=== PATIENT | female | born 1940 | race Caucasian/White ===

== ENCOUNTER 2017-04-25 14:25 | Outpatient (CLI) | payer MEDICARE, OTHER ==
--- NOTE | 2017-04-25 16:24 | MRI ---
PRE AND POSTCONTRAST ENHANCED MRI IMAGES BRAIN: HISTORY: A 77-year-old with a history of encephalitis 2 years ago, headaches. FINDINGS: Pre- and postcontrast-enhanced MRI images of the brain demonstrate some diffuse cortical atrophy and deep white matter ischemic changes. No evidence of intracranial masses, hemorrhages, strokes, or c ontusions seen. Ventricles are of normal size. No abnormal areas of intracranial enhancement seen. No evidence of areas of diffusion restriction seen. A normal flow void is seen in the major intra cranial vessels. IMPRESSION: Deep white matter ischemic changes. Otherwise, unremarkable pre- and postcontrast-enhanced MRI imag es of the brain. POS: [facility]
== END 2017-04-25 14:26 | disposition home or self-care (01) ==
LOC: SCSMRI 14:25
PROVIDERS: ATTEND Family Medicine
DX: R51 Headache (principal); G93.9 Disorder of brain, unspecified; Z86.61 Personal history of infections of the central nervous system; Z86.69 Personal history of other diseases of the nervous system and sense organs
CPT/HCPCS: 70553

== ENCOUNTER 2017-09-26 13:24 | Outpatient (CLI) | payer MEDICARE, OTHER ==
--- NOTE | 2017-09-26 15:59 | MRI ---
MRI OF LEFT SHOULDER 09/26/17 PROVIDED CLINICAL HISTORY: Left shoulder pain. FINDINGS: The components of the rotator cuff appear intact. The long head biceps tendon appears intact and norm ally located. The glenoid labrum and glenohumeral articular cartilage are suboptimally evaluated without joint dist ention. There is an ill-defined appearance to the inferior glenohumeral ligament particularly in the region of the humeral attachment. The amount of fluid within the glenohumeral joint appears physiologic. The amount of fluid within the subacromial, subdeltoid bursa appears physiologic. Acromioclavicular joint osteoarthrosis is mild and without significant mass effect upon the subjacen t supraspinatus. No focal concerning regional marrow or muscular signal abnormality is evident. IMPRESSION: 1. Ill-defined appearance to the inferior glenohumeral ligament, particularly in region of the h umeral attachments. Findings could reflect remote injury. Adhesive capsulitis can also present in thi s manner. 2. Acromioclavicular joint osteoarthrosis, mild. POS: [facility]
== END 2017-09-26 13:25 | disposition home or self-care (01) ==
LOC: SCSMRI 13:24
PROVIDERS: ATTEND Orthopaedic Surgery
DX: M25.512 Pain in left shoulder (principal); M19.012 Primary osteoarthritis, left shoulder

== ENCOUNTER 2017-10-16 13:57 | Outpatient (CLI) | payer MEDICARE, OTHER ==
[2017-10-16 14:58] LABS: Hemoglobin 13.3 g/dL (12.0-16.0); Mean Corpuscular HGB CONC 33.6 g/dL (32.0-36.0); Mean Corpuscular Hemoglobin 33.5 pg (27.0-31.0); Mean Corpuscular Volume 99.6 fl (81.0-99.0); Mean Platelet Volume 5.8 fL (7.4-10.4); Platelet Count 306 thou/uL (130-400); RBC Distribution Width 11.6 % (11.5-14.5); Red Blood Cell (RBC) Count 3.96 mill/uL (4.20-5.40); White Blood Cell (WBC) Count 5.7 thou/uL (4.8-10.8)
[2017-10-16 15:17] LABS: Anion Gap 12 mmol/L (10-20); BUN (Urea Nitrogen) 10 mg/dL (9.8-20.1); Calc. Creatinine Clearance 0 mL/min (70-130); Calcium 9.1 mg/dL (7.8-10.44); Carbon Dioxide 23 mmol/L (23-31); Chloride 107 mmol/L (98-107); Estimated GFR-MDRD Greater than 90; Glucose 88 mg/dL (83-110); Potassium 3.7 mmol/L (3.5-5.1); Sodium 138 mmol/L (136-145)
== END 2017-10-16 13:58 | disposition home or self-care (01) ==
LOC: LABBT 13:57
PROVIDERS: ATTEND Orthopaedic Surgery
DX: Z01.818 Encounter for other preprocedural examination (principal)
CPT/HCPCS: 80048; 85027; 93005; 93010

== ENCOUNTER 2017-10-17 06:39 | Day surgery (SDC) | payer MEDICARE, OTHER ==
[2017-10-16 14:07] VITALS: BMI 24.0
[2017-10-17] MEDS ORDERED: CEFAZOLIN/Water 2 GM/20 ML SYRINGE ONE (07:56)
[2017-10-17] MEDS ORDERED: Midazolam HCl 2 mg/2 ml Vial ONE (08:27)
[2017-10-17] MEDS ORDERED: Fentanyl 100 MCG/2 ML VIAL ONE ×2 (08:27→10:19)
[2017-10-17] MEDS ORDERED: Promethazine HCl 25 MG/ML VIAL IM PRN (09:03)
[2017-10-17] MEDS ORDERED: Ketorolac Tromethamine 30 MG/ML VIAL IVP PRN (09:03)
[2017-10-17] MEDS ORDERED: Zolpidem Tartrate 5 MG TAB PO PRN (09:03)
[2017-10-17] MEDS ORDERED: Ropivacaine 0.2% 550 ML 550 ML NERVE BLCK SCH (09:03)
[2017-10-17] MEDS ORDERED: Ondansetron HCl/PF 4 MG/2 ML Vial IVP PRN (09:03)
[2017-10-17] MEDS ORDERED: traMADol HCl 50 MG TAB PO PRN ×2 (09:03)
[2017-10-17] MEDS ORDERED: Fentanyl 100 MCG/2 ML VIAL IV PRN (09:04)
[2017-10-17] MEDS ORDERED: HYDROcodone/Acetaminophen 7.5/325 mg Tablet PO PRN ×2 (09:06)
[2017-10-17] MEDS ORDERED: Levofloxacin 500 mg/D5W 100 ml Premix Bag ONE (09:36)
[2017-10-17] MEDS ORDERED: Clindamycin/D5W 900 mg/50 ml Premix Bag ONE (09:36)
[2017-10-17] MEDS ORDERED: Bupivacaine/Epinephrine 0.25% 30 ML VIAL ONE (09:41)
[2017-10-17] MEDS ORDERED: SUGAMMADEX SODIUM 200 MG/2 ML VIAL ONE (11:13)
--- NOTE | 2017-10-17 12:39 | OP ---
DATE OF PROCEDURE: 10/17/2017 PREOPERATIVE DIAGNOSES: Left shoulder impingement with partial cuff tear. POSTOPERATIVE DIAGNOSES: 1. Left shoulder impingement. 2. Less than 10% partial cuff tear. PROCEDURE: 1. Extensive debridement STAFF: Jey Membreno M.D. PUBLIC RELATIONS: None. ANESTHESIA: Tammie. The patient received a general endotracheal intubation with interscalene block. ESTIMATED BLOOD LOSS: 30 mL. TOURNIQUET TIME: None. IMPLANTS: None. ANTIBIOTICS: Clindamycin 900 mg and Levaquin 500 mg. COMPLICATIONS: None. HISTORY OF PRESENT ILLNESS: Ms. Tan is a pleasant 77-year-old female who has had a history of multiple falls on her left shoulder. The patient has impacted activities. Pain has been present for over a year. The patient has undergone home therapy, injections, anti-inflammatories had MRI for evaluation. The patient had relief from injection, but has continued to have pain. MRI showed some interstitial tear. No obvious full thickness cuff tear, degenerative labral changes, AC joint arthritis, type 2 acromion. I discussed with the patient the risks and benefits of arthroscopic evaluation of her cuff for repair with possible decompression, possible biceps tenotomy. She understood the risks and benefits to include pain, scar, bleeding, infection, damage to vital structures, decreased range of motion or strength, loss of life or limb. She understood these risks and benefits and elected to proceed. Time out was performed. PROCEDURE IN DETAIL: Timeout was performed designating the patient's left upper extremity as the operative site based on site, consents, markings. I placed a posterior working portal and anterior working portal, visualized the tear articularly, the biceps had a nice root. There was maybe small fraying of the capsule insertion within the shoulder, which I just slightly debrided. I saw no labral tearing as I probed. The biceps looked good. Subscapularis looked good. I saw no full thickness cartilage defects intraarticularly. After completion of this, I moved subacromially. The patient had bursa which I debrided off. I debrided off all the tissue off the bone and took down the CA ligament, burred, I shaved and smoothed the acromion. There was a small acromion, I did not desire to take a big bur width, I just took my shaver and shaved it down. I shaved off all the bursa and expose the cuff. I did not see a full thickness supraspinatus tear or infraspinatus tear. There was some fibrillations and kind of seaweed type tearing which would be less than 10%. I saw no full thickness component. After completely exposing and taking pictures of the cuff I then washed and closed with 3-0 nylon. The patient will be placed in a sling. Begin range of motion as tolerated. I will see her back in clinic in about 2 weeks. SIXTO
[2017-10-17] MEDS ORDERED: Promethazine HCl 25 MG/ML VIAL ONE (13:08)
[2017-10-17] MEDS ORDERED: Ropivacaine 0.5% HCl/PF (150 MG/30 ML VIAL) ONE (13:41)
[2017-10-17] MEDS ORDERED: PROPOFOL 200 MG/20 ML VIAL ONE (15:34)
[2017-10-17] MEDS ORDERED: Ondansetron HCl/PF 4 MG/2 ML Vial ONE (15:34)
== END 2017-10-17 14:28 | disposition home or self-care (01) ==
LOC: SDC 06:39
PROVIDERS: ATTEND Orthopaedic Surgery
PROC: 0RBK4ZZ Excision of Left Shoulder Joint, Percutaneous Endoscopic Approach (ICD-10-PCS; principal; 2017-10-17)
DX: M75.42 Impingement syndrome of left shoulder (principal); M75.112 Incomplete rotator cuff tear or rupture of left shoulder, not specified as traumatic; I10 Essential (primary) hypertension; F41.9 Anxiety disorder, unspecified; F32.9 Major depressive disorder, single episode, unspecified; G44.89 Other headache syndrome; M54.31 Sciatica, right side; Z79.82 Long term (current) use of aspirin; Z79.899 Other long term (current) drug therapy; Z88.0 Allergy status to penicillin; Z88.5 Allergy status to narcotic agent; Z91.09 Other allergy status, other than to drugs and biological substances
CPT/HCPCS: 29822; A4306; 96374; J1956; J2250; J2405; J2550; J2704; J2795; J3010; J3490

== ENCOUNTER 2018-03-19 12:44 | Outpatient (CLI) | payer MEDICARE, OTHER | END 2018-03-19 12:45 | disposition home or self-care (01) | LOC: BICMRI 12:44 | PROVIDERS: ATTEND Orthopaedic Surgery | DX: M54.2 Cervicalgia (principal) | CPT/HCPCS: 72141 ==

== ENCOUNTER 2018-08-22 11:00 | Emergency (ER) | payer MEDICARE, OTHER ==
[2018-08-22] MEDS ORDERED: Metoclopramide HCl 10 MG/2 ML VIAL ONE (11:25)
[2018-08-22] MEDS ORDERED: diphenhydrAMINE 50 MG/ML VIAL ONE (11:25)
--- NOTE | 2018-08-22 12:01 | CT ---
CT OF THE BRAIN WITHOUT CONTRAST: Date: 08/22/18 COMPARISON: None. HISTORY: Headache. High blood pressure. TECHNIQUE: Multiple contiguous axial images were obtained in a CT of the brain without contrast. FINDINGS: There are scattered hypodensities in the subcortical and periventricular white matter, likely seconda ry to small vessel ischemic disease. No large confluent infarction is seen. There is no evidence of h ydrocephalus, intracranial hemorrhage, or extra-axial fluid collection. A radiopaque structure is seen anterior to the left globe which produces streak artifact. The visuali zed paranasal sinuses and mastoid air cells are well aerated. IMPRESSION: Small vessel ischemic disease without acute intracranial abnormality. POS: [facility]
[2018-08-22 12:02] LABS: #Basophils 0.1 thou/uL (0.0-0.2); #Eosinphils 0.1 thou/uL (0.0-0.7); #Lymphocytes 1.8 thou/uL (1.20-3.40); #Monocytes 0.6 thou/uL (0.11-0.59); #Neutrophils 5.2 thou/uL (1.40-6.50); %Basophils 1.3 % (0.0-1.0); %Eosinophils 1.2 % (0.0-10.0); %Monocytes 7.2 % (0.0-10.0); %Neutrophils 67.3 % (42.0-75.0); Hemoglobin 14.4 g/dL (12.0-16.0); Mean Corpuscular HGB CONC 32.4 g/dL (32.0-36.0); Mean Corpuscular Hemoglobin 31.8 pg (27.0-31.0); Mean Corpuscular Volume 98.1 fL (78.0-98.0); Mean Platelet Volume 6.1 fL (7.4-10.4); Platelet Count 319 thou/uL (130-400); RBC Distribution Width 12.9 % (11.5-14.5); Red Blood Cell (RBC) Count 4.53 mill/uL (4.20-5.40); White Blood Cell (WBC) Count 7.8 thou/uL (4.8-10.8)
[2018-08-22] MEDS ORDERED: methylPREDNISolone Sod Succ/PF 125 MG/2 ML VIAL ONE (12:13)
[2018-08-22 12:17] LABS: ALT (SGPT) 20 U/L (8-55); AST (SGOT) 19 U/L (5-34); Albumin 4.1 g/dL (3.4-4.8); Alkaline Phosphatase 82 U/L (40-150); Anion Gap 15 mmol/L (10-20); BUN (Urea Nitrogen) 13 mg/dL (9.8-20.1); Bilirubin, Total 0.3 mg/dL (0.2-1.2); Calc. Creatinine Clearance 0 mL/min (70-130); Calcium 9.9 mg/dL (7.8-10.44); Carbon Dioxide 25 mmol/L (23-31); Chloride 105 mmol/L (98-107); Estimated GFR-MDRD 85; Glucose 90 mg/dL (83-110); Potassium 3.9 mmol/L (3.5-5.1); Protein, Total 7.1 g/dL (6.0-8.3); Sodium 141 mmol/L (136-145)
[2018-08-22] MEDS ORDERED: Ketorolac Tromethamine 30 MG/ML VIAL ONE (12:27)
== END 2018-08-22 12:38 | disposition home or self-care (01) ==
LOC: SCSER 11:00
DX: I10 Essential (primary) hypertension (principal); F32.9 Major depressive disorder, single episode, unspecified; G43.909 Migraine, unspecified, not intractable, without status migrainosus; M19.90 Unspecified osteoarthritis, unspecified site; F41.9 Anxiety disorder, unspecified; Z79.82 Long term (current) use of aspirin; Z79.891 Long term (current) use of opiate analgesic; Z79.899 Other long term (current) drug therapy
CPT/HCPCS: 70450; 80053; 84484; 85025; 93005; 94760; 96374; 96375; J1200; J1885; J2765; J2930

== ENCOUNTER 2018-09-01 04:12 | Inpatient (IN) | payer MEDICARE, OTHER ==
[2018-09-01] MEDS ORDERED: Morphine 4 MG/ML VIAL ONE (04:31)
[2018-09-01] MEDS ORDERED: Ondansetron PF 4 MG/2 ML Vial ONE (04:31)
[2018-09-01 05:05] LABS: Eosinophils 3 % (0-10); Hemoglobin 15.7 g/dL (12.0-16.0); Lymphocytes 13 % (21-51); MDiff Complete? YES; Mean Corpuscular HGB CONC 33.9 g/dL (32.0-36.0); Mean Corpuscular Hemoglobin 32.7 pg (27.0-31.0); Mean Corpuscular Volume 96.6 fL (78.0-98.0); Mean Platelet Volume 5.8 fL (7.4-10.4); Monocytes 9 % (0-10); Neutrophil 72 % (42-75); Platelet Count 317 thou/uL (130-400); RBC Distribution Width 12.6 % (11.5-14.5); Reactive Lymphocytes 3 % (0-10); Red Blood Cell (RBC) Count 4.79 mill/uL (4.20-5.40); White Blood Cell (WBC) Count 12.7 thou/uL (4.8-10.8)
[2018-09-01 05:09] LABS: ALT (SGPT) 27 U/L (8-55); AST (SGOT) 37 U/L (5-34); Albumin 4.4 g/dL (3.4-4.8); Alkaline Phosphatase 74 U/L (40-150); Anion Gap 20 mmol/L (10-20); BUN (Urea Nitrogen) 16 mg/dL (9.8-20.1); Bilirubin, Total 0.4 mg/dL (0.2-1.2); Calc. Creatinine Clearance 0 mL/min (70-130); Calcium 11.3 mg/dL (7.8-10.44); Carbon Dioxide 25 mmol/L (23-31); Chloride 102 mmol/L (98-107); Estimated GFR-MDRD 73; Globulin 3.4 g/dL (2.4-3.5); Glucose 127 mg/dL (83-110); Lipase 21 U/L (8-78); Potassium 4.6 mmol/L (3.5-5.1); Protein, Total 7.8 g/dL (6.0-8.3); Sodium 142 mmol/L (136-145)
[2018-09-01] MEDS ORDERED: Morphine 4 MG/ML VIAL SLOW IVP PRN (07:00)
[2018-09-01] MEDS ORDERED: Ondansetron PF 4 MG/2 ML Vial IVP PRN (07:00)
[2018-09-01] MEDS ORDERED: Ondansetron ODT 4 MG TAB PO PRN (07:00)
[2018-09-01] MEDS ORDERED: Sodium Chloride 0.9% 1,000 ML IV SCH (07:00)
[2018-09-01] MEDS ORDERED: Labetalol HCl 100 MG/20 ML VIAL SLOW IVP PRN (07:48)
[2018-09-01] MEDS ORDERED: hydrALAZINE 20 MG/ML VIAL SLOW IVP PRN (07:48)
--- NOTE | 2018-09-01 07:58 | CT ---
ABDOMEN AND PELVIS CT NONCONTRAST: COMPARISON: 02/27/2017. INDICATION: Abdominal pain. FINDINGS: There are numerous dilated fluid and stool-filled loops of small bowel. The bowel is incompletely ev aluated without enteric contrast. A discrete point of transition is not identified, although bowel s omewhat tapers within the right lower quadrant near the site of anastomotic suture where there is sto ol-filled small bowel which is mildly distended. There is evidence of prior cholecystectomy. Solid abdominal organs, lymph nodes, and vascular are in completely assessed without the presence of IV contrast. There is scattered mild vascular calcificat ion. There is eventration of the ventral abdominal wall with adjacent surgical clips. Bilateral jose ast implants are seen with a component of chronic-appearing rupture demonstrate, more level with the medial aspect of the right breast. No acute osseous abnormality. IMPRESSION: Limited exam without IV or enteric contrast. There is evidence to indicate bowel obstruction with di ffuse distended fluid and stool-filled small bowel. There are sites of anastomotic suture and, there fore, the etiology could relate to adhesions, although this could not be confirmed on the basis of th is exam. There is no disseminated free air. POS: [facility]
[2018-09-01] MEDS ORDERED: Morphine 2 MG/ML SYRINGE SLOW IVP PRN (08:06)
[2018-09-01] MEDS: Morphine 4 MG/ML VIAL SLOW IVP PRN ×4 (09:31→21:31)
[2018-09-01] MEDS: Enoxaparin Sodium 40 MG/0.4 ML SYRINGE SC SCH (09:31)
[2018-09-01] MEDS: Famotidine/PF 20 mg/2ml Vial SLOW IVP SCH ×2 (09:31→21:42)
[2018-09-01] MEDS: D5 0.9% NS w/ 20 mEq KCl 1,000 ML IV SCH ×2 (09:32→17:40)
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
[2018-09-01] MEDS: Ondansetron PF 4 MG/2 ML Vial IVP PRN ×2 (12:23→19:48)
[2018-09-02] MEDS: D5 0.9% NS w/ 20 mEq KCl 1,000 ML IV SCH ×4 (01:49→17:16)
[2018-09-02] MEDS: Morphine 4 MG/ML VIAL SLOW IVP PRN (01:59)
[2018-09-02] MEDS: Ondansetron PF 4 MG/2 ML Vial IVP PRN (02:02)
[2018-09-02 03:04] LABS: #Basophils 0.1 thou/uL (0.0-0.2); #Eosinphils 0.1 thou/uL (0.0-0.7); #Monocytes 0.5 thou/uL (0.11-0.59); #Neutrophils 3.9 thou/uL (1.40-6.50); %Basophils 1.3 % (0.0-1.0); %Eosinophils 1.1 % (0.0-10.0); %Lymphocytes 18.4 % (21.0-51.0); %Monocytes 8.5 % (0.0-10.0); %Neutrophils 70.8 % (42.0-75.0); Hemoglobin 13.8 g/dL (12.0-16.0); Mean Corpuscular HGB CONC 32.6 g/dL (32.0-36.0); Mean Corpuscular Hemoglobin 32.9 pg (27.0-31.0); Mean Platelet Volume 6.3 fL (7.4-10.4); Platelet Count 262 thou/uL (130-400); White Blood Cell (WBC) Count 5.5 thou/uL (4.8-10.8)
[2018-09-02 03:24] LABS: Anion Gap 12 mmol/L (10-20); BUN (Urea Nitrogen) 6 mg/dL (9.8-20.1); Calc. Creatinine Clearance 0 mL/min (70-130); Calcium 8.9 mg/dL (7.8-10.44); Carbon Dioxide 26 mmol/L (23-31); Chloride 106 mmol/L (98-107); Estimated GFR-MDRD Greater than 90; Glucose 140 mg/dL (83-110); Potassium 4.2 mmol/L (3.5-5.1); Sodium 140 mmol/L (136-145)
[2018-09-02] MEDS ORDERED: Ketorolac Tromethamine 30 MG/ML VIAL IVP PRN (03:31)
[2018-09-02] MEDS ORDERED: Promethazine HCl 12.5 MG in Sodium Chloride 0.9% 50 ML IVPB PRN (03:32)
[2018-09-02] MEDS: Famotidine/PF 20 mg/2ml Vial SLOW IVP SCH ×2 (09:12→20:54)
[2018-09-02] MEDS: Enoxaparin Sodium 40 MG/0.4 ML SYRINGE SC SCH (09:13)
[2018-09-02] MEDS ORDERED: MD-Gastroview 120 ML BOT ONE (10:02)
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
[2018-09-02] MEDS: Ketorolac Tromethamine 30 MG/ML VIAL IVP PRN ×2 (14:13→20:52)
--- NOTE | 2018-09-02 15:20 | RAD ---
GASTROGRAFIN SMALL BOWEL STUDY: DATE: 09/02/2018. HISTORY: Small bowel obstruction based on recent CT exam. FINDINGS: [employer] AP ABDOMINAL RADIOGRAPH: Comparison is made with the study on 03/03/2017. Nasogastric tube is noted in place with tip overlyin g the expected location of the body of the body of the stomach. There is postsurgical of the abdomen with surgical clips overlying the right upper quadrant and radiopaque suture material overlying the right lower quadrant. The bowel gas pattern is overall nonspecific on this exam. Distended gas-fill ed loops of small bowel in colon on the prior study has improved. No other interval change. GASTROGRAFIN SMALL BOWEL STUDY: There is contrast seen throughout the small bowel on the 15-minute image without significantly dilate d loops of small bowel visualized. There is contrast also seen within the colon on the 15-minute vijay ge. A 30-minute delayed image is obtained, and contrast is seen in the rectum. Contrast has emptied out of the stomach on the 30-minute image. There is irregularity of the right iliac bone which is a stable finding compared to the prior study a nd was also seen on CT abdomen and pelvis in 2015 suggesting a benign finding and may be postsurgical in origin. IMPRESSION: Postsurgical changes of the abdomen, but there is no evidence of a small bowel obstruction. Contrast is visualized in the colon to the level of the splenic flexure on the 15-minute image with contrast seen in the rectum on the 30-minute image without findings to suggest a small bowel obstruction on th is exam. POS: [facility]
[2018-09-02] MEDS ORDERED: traMADol HCl 50 MG TAB PO PRN (16:46)
[2018-09-02] MEDS: traMADol HCl 50 MG TAB PO PRN (17:00)
--- NOTE | 2018-09-02 21:25 | PDOC.PN ---
- Subjective Encounter Start Date: 09/02/18 Encounter Start Time: 09:45 Patient seen and examined for SBO/Abd pain. NG tube placed last night. No N/V. No BM or passing gas. No other overnight events - Objective Resuscitation Status - Order Detail: 09/01/18 07:44 Resuscitation Status Routine Resuscitation Status: FULL: Full Resuscitation MAR Reviewed: Yes Vital Signs & Weight: Vital Signs (12 hours) Temp Pulse Resp BP Pulse Ox 09/02/18 16:05 98.2 F 89 16 141/74 H 95 09/02/18 11:42 98.2 F 83 20 178/77 H Weight Weight 2.797 oz I&O: 09/01/18 09/02/18 09/03/18 06:59 06:59 06:59 Intake Total 1477 Output Total 2034 75 Balance -2034 1402 Result Diagrams: 09/02/18 02:51 09/02/18 02:51 Phys Exam - Physical Examination Constitutional: NAD Respiratory: no wheezing, no rhonchi Cardiovascular: RRR, no rub Gastrointestinal: soft, positive bowel sounds mild gen tenderness/no rebound/guarding Musculoskeletal: no edema Dx/Plan - Plan DVT proph w/SCDs IMPRESSION: 1. Acute Abd pain due to SBO 2. HTN 3. Migraines 4. Multiple abd surgeries 5. Dehydration PLAN: Cont NG tube/IVF Consult Gen surg Cont NPO Pain control Review of Systems - Review of Systems Respiratory: negative: Cough, Dry, Shortness of Breath, Hemoptysis, SOB with Excertion, Pleuritic Pain, Sputum, Wheezing Cardiovascular: negative: chest pain, palpitations, orthopnea, paroxysmal nocturnal dyspnea, edema, light headedness, other - Medications/Allergies Allergies/Adverse Reactions: Allergies Allergy/AdvReac Type Severity Reaction Status Date / Time Penicillins Allergy Intermediate Hives Verified 09/01/18 06:53 codeine Allergy Mild Hives Verified 09/01/18 06:53 iodine Allergy Mild Verified 09/01/18 06:53 Medications: Current Medications Amlodipine Besylate (Norvasc) 5 mg PO DAILY [facility] Famotidine (Pepcid) 20 mg PO BID [facility] Hydralazine HCl (Apresoline) 10 mg SLOW IVP Q4H PRN PRN Reason: SBP > 180 and HR < 70 Potassium Chloride/Dextrose/Sod Cl (D5 0.9% Ns W/ 20 Meq Kcl) 1,000 mls @ 50 mls/hr IV .Q20H [facility] Last Admin: 09/02/18 17:02 Dose: Not Given Ketorolac Tromethamine (Toradol) 15 mg IVP Q6H PRN PRN Reason: Pain Stop: 09/07/18 12:54 Last Admin: 09/02/18 20:52 Dose: 15 mg Labetalol HCl (Normodyne) 20 mg SLOW IVP Q4H PRN PRN Reason: SBP > 180 and HR >/= 70 Nadolol (Corgard) 20 mg PO DAILY [facility] Ondansetron HCl (Zofran) 4 mg IVP Q6H PRN PRN Reason: Nausea/Vomiting Last Admin: 09/02/18 02:02 Dose: 4 mg Sodium Chloride (Flush - Normal Saline) 10 ml IVF Q12HR [facility] Last Admin: 09/02/18 20:54 Dose: 10 ml Sodium Chloride (Flush - Normal Saline) 10 ml IVF PRN PRN PRN Reason: Saline Flush Last Admin: 09/02/18 02:00 Dose: 10 ml Tramadol HCl (Ultram) 50 mg PO Q4H PRN PRN Reason: Moderate Pain (4-6) Tramadol HCl (Ultram) 100 mg PO Q6H PRN PRN Reason: Pain 7-10 Last Admin: 09/02/18 17:00 Dose: 100 mg
[2018-09-03] MEDS: traMADol HCl 50 MG TAB PO PRN ×2 (00:25→08:31)
[2018-09-03] MEDS: D5 0.9% NS w/ 20 mEq KCl 1,000 ML IV SCH (00:30)
[2018-09-03] MEDS: Ondansetron PF 4 MG/2 ML Vial IVP PRN (05:32)
[2018-09-03] MEDS: Ketorolac Tromethamine 30 MG/ML VIAL IVP PRN (05:33)
[2018-09-03] MEDS ORDERED: Amlodipine 5 MG TAB PO SCH (09:00)
[2018-09-03] MEDS ORDERED: NADOLOL 20 MG PO SCH (09:00)
[2018-09-03] MEDS ORDERED: Nadolol 40 MG TAB PO SCH (09:00)
[2018-09-03] MEDS ORDERED: Famotidine 20 MG TAB PO SCH (09:00)
--- NOTE | 2018-09-03 09:59 | PRG ---
DATE OF SERVICE: 09/03/2018 Britney is a 78-year-old woman, who was admitted with acute onset abdominal pain. I evaluated the patient in consultation to exclude small-bowel obstruction. The patient had unremarkable small-bowel follow-through yesterday. Since then, she has had multiple bowel movements. She is not tolerating general diet. She has remained hemodynamically stable and afebrile through this admission. Abdomen is soft, nontender, and nondistended. She has maximized benefit from this surgical service. There remains no acute surgical indication for this patient at this time. From General Surgery standpoint, the patient may be discharged home to follow up with her primary care physician as needed. Job ID: [id number]
[2018-09-03 11:43] VITALS: BP 140/86; TEMP 98.2
--- NOTE | 2018-09-03 19:35 | DIS ---
DATE OF ADMISSION: 09/01/2018 DATE OF DISCHARGE: 09/03/2018 DISCHARGE DISPOSITION: Home. FOLLOWUP: 1. Follow up with primary care physician, Dr. Hortensia Hunt in 1 week. 2. Follow up with General Surgery, Dr. Reyes Gonzalez in 2 to 3 weeks. The patient was seen and examined on the day of discharge. Denies any new complaints. No nausea, vomiting, or abdominal pain reported. INPATIENT SWEET PICKLE [employer]KER: General Surgery, Dr. Gonzalez. BRIEF HOSPITAL COURSE: The patient is a 78-year-old female with multiple GI surgeries in the past, presented to the hospital with abdominal discomfort. Workup was consistent with small-bowel obstruction on the CT scan. She was managed conservatively with NG tube, n.p.o. Status, and IV fluids. Next day, she underwent a Gastrografin small-bowel study, after which a small bowel obstruction resolved. She was monitored overnight and has done well. She has been cleared by General Surgery for discharge. LABORATORY DATA: Significant labs; WBC on admission 12.7, at discharge 5.5. FINAL DIAGNOSES: 1. Acute abdominal pain secondary to small bowel obstruction, resolved. 2. Hypertension. 3. Multiple abdominal surgeries in the past. 4. History of migraines. 5. Dehydration. 6. Penicillin, codeine, and iodine allergy. 7. Slightly abnormal LFTs. 8. Leukocytosis, unlikely to be infectious. Job ID: [id number]
== END 2018-09-03 11:45 | disposition home or self-care (01) | DRG 390 ==
LOC: SCSER 04:12 → 3SE 05:32
PROVIDERS: ADMIT Hospitalist; ATTEND Hospitalist
DX: K56.609 Unspecified intestinal obstruction, unspecified as to partial versus complete obstruction (principal); I10 Essential (primary) hypertension; G43.909 Migraine, unspecified, not intractable, without status migrainosus; E86.0 Dehydration
CPT/HCPCS: 36415; 74176; 74250; 80048; 80053; 83690; 85025; 96361; 96374; 96375; J1650; J1885; J2270; J2405; J2550; J7050; Q9963; S0028

== ENCOUNTER 2018-11-06 12:47 | Outpatient (CLI) | payer MEDICARE, OTHER ==
--- NOTE | 2018-11-06 13:28 | ULT ---
BILATERAL CAROTID DUPLEX ULTRASOUND: HISTORY: Syncope TECHNIQUE: Grayscale, color-flow and spectral Doppler ultrasound imaging of the extracranial carotid artery syst ems and vertebral arteries was performed bilaterally. FINDINGS: No large amount of echogenic plaque is seen involving the common carotid or internal carotid arteries . The peak systolic velocity in the right ICA measures 79 cm/s. The peak systolic velocity in the righ t CCA measures 95 cm/s. The peak systolic velocity in the left ICA measures 79 cm/s. The peak systolic velocity in the lef t CCA measures 80 cm/s. The right IC/CC ration is0.83. The left IC/CC ratio is 0.98. Vertebral flow: antegrade, bilaterally. . IMPRESSION: No hemodynamically significant stenosis of the internal carotid arteries.
== END 2018-11-06 12:48 | disposition home or self-care (01) ==
LOC: BICULT 12:47
PROVIDERS: ATTEND Internal Medicine Geriatric Medicine
DX: R55 Syncope and collapse (principal)
CPT/HCPCS: 93880

== ENCOUNTER 2020-06-16 12:24 | Outpatient (CLI) | payer MEDICARE, OTHER ==
[2020-06-16] MEDS ORDERED: Magnevist 469MG/ML 20 ML VIAL ONE (13:54)
--- NOTE | 2020-06-16 14:05 | MRI ---
MRI BRAIN WITH AND WITHOUT CONTRAST: 06/16/20 COMPARISON: None. HISTORY: Migraine headaches. TECHNIQUE: Multiplanar and multisequence MR imaging of the brain provided with and without contrast. FINDINGS: The diffusion weighted imaging demonstrates no evidence for acute infarction. The axial gradient echo imaging demonstrates no evidence for intracranial hemorrhage. The imaged paranasal sinuses and mastoid air cells appear grossly unremarkable. There is mild diffuse cerebral volume loss. There is extensive multifocal periventricular, deep, and subcortical white matter. T2 and FLAIR hyperintensity, most consistent with small vessel disease. Arterial flow voids at the axial level of the skull base appear grossly unremarkable on the T2 weight ed imaging. The postcontrast imaging demonstrates no abnormal enhancement within the brain parenchyma. IMPRESSION: Evidence of significant small vessel disease. Mild cerebral volume loss. No intracranial hemorrhage, acute infarction, mass lesion or abnormal enhancement. POS: [facility]
== END 2020-06-16 12:25 | disposition home or self-care (01) ==
LOC: BICMRI 12:24
PROVIDERS: ATTEND Psychiatry & Neurology Neurology
DX: G43.019 Migraine without aura, intractable, without status migrainosus (principal); G93.89 Other specified disorders of brain
CPT/HCPCS: 70553; 82565; A9579

== ENCOUNTER 2021-01-24 13:56 | Outpatient (CLI) | payer MEDICARE, OTHER | END 2021-01-24 13:57 | disposition home or self-care (01) | LOC: BICRAD 13:56 | PROVIDERS: ATTEND Physician Assistant Medical | DX: R19.8 Other specified symptoms and signs involving the digestive system and abdomen (principal) | CPT/HCPCS: 74018 ==

== ENCOUNTER 2021-02-17 13:13 | Outpatient (CLI) | payer MEDICARE, OTHER | END 2021-02-17 13:14 | disposition home or self-care (01) | LOC: BICRAD 13:13 | PROVIDERS: ATTEND Physician Assistant Medical | DX: K59.00 Constipation, unspecified (principal); R19.7 Diarrhea, unspecified | CPT/HCPCS: 74018 ==

== ENCOUNTER 2021-05-22 12:49 | Outpatient (CLI) | payer MEDICARE, OTHER | END 2021-05-22 12:50 | disposition home or self-care (01) | LOC: BICRAD 12:49 | PROVIDERS: ATTEND Family Medicine | DX: M54.50 Low back pain, unspecified (principal); M47.816 Spondylosis without myelopathy or radiculopathy, lumbar region | CPT/HCPCS: 72100 ==

== ENCOUNTER 2021-06-23 18:20 | Emergency (ER) | payer MEDICARE, OTHER ==
[~2021-06-23 18:20] MED LIST: Iopamidol-370 76% 500 ML 1 ML ONE
[2021-06-23] MEDS ORDERED: Fentanyl 100 MCG/2 ML VIAL ONE (18:55)
[2021-06-23 19:48] LABS: #Basophils 0.1 thou/uL (0.0-0.2); #Eosinphils 0.1 thou/uL (0.0-0.7); #Lymphocytes 1.9 thou/uL (1.20-3.40); #Monocytes 0.7 thou/uL (0.11-0.59); #Neutrophils 7.8 thou/uL (1.40-6.50); %Basophils 0.8 % (0.0-1.0); %Eosinophils 0.9 % (0.0-10.0); %Lymphocytes 18.1 % (21.0-51.0); %Monocytes 6.6 % (0.0-10.0); %Neutrophils 73.6 % (42.0-75.0); Hemoglobin 12.9 g/dL (12.0-16.0); Mean Corpuscular HGB CONC 33.9 g/dL (32.0-36.0); Mean Corpuscular Hemoglobin 33.4 pg (27.0-31.0); Mean Corpuscular Volume 98.7 fL (78.0-98.0); Platelet Count 418 thou/uL (130-400); Red Blood Cell (RBC) Count 3.85 mill/uL (4.20-5.40); White Blood Cell (WBC) Count 10.6 thou/uL (4.8-10.8)
[2021-06-23] MEDS ORDERED: methylPREDNISolone Sod Succ/PF 125 MG/2 ML VIAL ONE (19:58)
[2021-06-23] MEDS ORDERED: Famotidine/PF 20 mg/2ml Vial ONE ×3 (19:58→20:00)
[2021-06-23] MEDS ORDERED: diphenhydrAMINE 50 MG/ML VIAL ONE (19:58)
[2021-06-23 20:11] LABS: ALT (SGPT) 15 U/L (8-55); AST (SGOT) 27 U/L (5-34); Alkaline Phosphatase 87 U/L (40-110); Anion Gap 14 mmol/L (10-20); BUN (Urea Nitrogen) 12 mg/dL (9.8-20.1); Bilirubin, Total 0.3 mg/dL (0.2-1.2); Calc. Creatinine Clearance 0 mL/min (70-130); Calcium 9.4 mg/dL (7.8-10.44); Carbon Dioxide 24 mmol/L (23-31); Chloride 103 mmol/L (98-107); Globulin 3.6 g/dL (2.4-3.5); Glucose 88 mg/dL (83-110); Lipase 14 U/L (8-78); Potassium 3.2 mmol/L (3.5-5.1); Protein, Total 7.6 g/dL (5.8-8.1); Sodium 138 mmol/L (136-145)
== END 2021-06-24 00:43 | disposition home or self-care (01) ==
LOC: ERS 18:20
DX: S22.018A Other fracture of first thoracic vertebra, initial encounter for closed fracture (principal); S22.028A Other fracture of second thoracic vertebra, initial encounter for closed fracture; S22.038A Other fracture of third thoracic vertebra, initial encounter for closed fracture; J18.9 Pneumonia, unspecified organism; I10 Essential (primary) hypertension; G43.709 Chronic migraine without aura, not intractable, without status migrainosus; V89.2XXA Person injured in unspecified motor-vehicle accident, traffic, initial encounter
CPT/HCPCS: 36415; 70450; 70498; 71260; 72125; 74177; 80053; 83690; 85025; 86850; 86900; 86901; 93005; 96374; 96375; J1200; J2930; J3010; Q9967; S0028

== ENCOUNTER 2021-07-03 14:49 | Outpatient (CLI) | payer MEDICARE, OTHER | END 2021-07-03 14:50 | disposition home or self-care (01) | LOC: BICRAD 14:49 | PROVIDERS: ATTEND Family Medicine | DX: S22.019 Unspecified fracture of first thoracic vertebra (principal); S22.029 Unspecified fracture of second thoracic vertebra; S22.039D Unspecified fracture of third thoracic vertebra, subsequent encounter for fracture with routine healing; J18.9 Pneumonia, unspecified organism; M47.814 Spondylosis without myelopathy or radiculopathy, thoracic region; R91.8 Other nonspecific abnormal finding of lung field | CPT/HCPCS: 71046; 72072 ==

== ENCOUNTER 2021-07-20 14:06 | Outpatient (CLI) | payer MEDICARE, OTHER | END 2021-07-20 14:07 | disposition home or self-care (01) | LOC: BICCT 14:06 | PROVIDERS: ATTEND Family Medicine | DX: R91.8 Other nonspecific abnormal finding of lung field (principal) | CPT/HCPCS: 71250 ==

== ENCOUNTER 2021-10-13 14:18 | Inpatient (IN) | payer MEDICARE ==
[2021-10-13] MEDS ORDERED: Ondansetron PF 4 MG/2 ML Vial ONE (15:22)
[2021-10-13] MEDS ORDERED: Dicyclomine 20 MG/2 ML VIAL ONE (15:22)
[2021-10-13] MEDS ORDERED: methylPREDNISolone Sod Succ/PF 125 MG/2 ML VIAL ONE (15:49)
[2021-10-13] MEDS ORDERED: diphenhydrAMINE 50 MG/ML VIAL ONE (15:49)
[2021-10-13] MEDS ORDERED: Famotidine/PF 20 mg/2ml Vial ONE (15:49)
[2021-10-13 16:09] LABS: Hemoglobin 12.7 g/dL (12.0-16.0); Mean Corpuscular HGB CONC 31.6 g/dL (32.0-36.0); Mean Corpuscular Hemoglobin 32.3 pg (27.0-31.0); Mean Platelet Volume 6.3 fL (7.4-10.4); Platelet Count 285 thou/uL (130-400); RBC Distribution Width 12.4 % (11.5-14.5); Red Blood Cell (RBC) Count 3.92 mill/uL (4.20-5.40)
[2021-10-13 16:27] LABS: Band 3 % (5-11); Lymphocytes 15 % (21-51); MDiff Complete? YES; Macrocytosis SLIGHT = 6-15 cells (100X) (0-5/hpf); Monocytes 3 % (0-10); Neutrophil 76 % (42-75); Platelet Morphology Comment Appears Adequate
[2021-10-13 16:34] LABS: ALT (SGPT) 7 U/L (8-55); AST (SGOT) 20 U/L (5-34); Albumin 3.9 g/dL (3.4-4.8); Alkaline Phosphatase 68 U/L (40-110); Anion Gap 19 mmol/L (10-20); BUN (Urea Nitrogen) 9 mg/dL (9.8-20.1); Bilirubin, Total 0.3 mg/dL (0.2-1.2); Calc. Creatinine Clearance 0 mL/min (70-130); Calcium 9.5 mg/dL (7.8-10.44); Carbon Dioxide 28 mmol/L (23-31); Chloride 103 mmol/L (98-107); Globulin 3.2 g/dL (2.4-3.5); Glucose 99 mg/dL (83-110); Lipase 13 U/L (8-78); Potassium 3.8 mmol/L (3.5-5.1); Protein, Total 7.1 g/dL (5.8-8.1); Sodium 146 mmol/L (136-145)
[2021-10-13 17:18] LABS: Bilirubin Negative (Negative); Blood, Urine Negative (Negative); Clarity Turbid (Clear); Glucose, Urine (Dipstick) Normal (Negative); Ketone, Urine Trace mg/dL (Negative); Leukocyte Negative Leu/uL (Negative); Nitrite Negative (Negative); Protein, Urine (Dipstick) Negative (Neg-Trace); Specific Gravity, Urine 1.013 (1.002-1.036); Urobilinogen Normal mg/dL (Less than 2); pH, Urine 8.5 (5.0-9.0)
[2021-10-13] MEDS ORDERED: Benzocaine 20% Spray 60 ML CAN ONE (18:39)
[2021-10-13] MEDS ORDERED: Lidocaine Viscous Sol 2% 15 ml UD Cup ONE (18:40)
[2021-10-13] MEDS ORDERED: Ondansetron ODT 4 MG TAB SL PRN (21:30)
[2021-10-13] MEDS ORDERED: Dextrose 5 %-0.45 % NaCl 1,000 ML IV SCH (21:30)
[2021-10-13] MEDS ORDERED: Ondansetron PF 4 MG/2 ML Vial IVP PRN (21:30)
[2021-10-13] MEDS ORDERED: diphenhydrAMINE 50 MG/ML VIAL IVP SCH (22:30)
[2021-10-13 23:17] VITALS: BMI 18.3
[2021-10-13] MEDS ORDERED: Pantoprazole 40 MG VIAL IVP SCH (23:45)
[2021-10-13] MEDS: Sodium Chloride 0.9% 1,000 ML IV SCH (23:53)
[2021-10-14] MEDS ORDERED: Morphine 4 MG/ML VIAL SLOW IVP SCH (04:15)
[2021-10-14] MEDS: Morphine 4 MG/ML VIAL SLOW IVP PRN ×2 (04:27→09:17)
[2021-10-14 05:24] LABS: #Basophils 0.1 thou/uL (0.0-0.2); #Lymphocytes 1.3 thou/uL (1.20-3.40); #Monocytes 0.5 thou/uL (0.11-0.59); #Neutrophils 5.3 thou/uL (1.40-6.50); %Basophils 0.7 % (0.0-1.0); %Eosinophils 0.1 % (0.0-10.0); %Lymphocytes 18.1 % (21.0-51.0); %Monocytes 6.7 % (0.0-10.0); %Neutrophils 74.4 % (42.0-75.0); Hemoglobin 12.9 g/dL (12.0-16.0); Mean Corpuscular Hemoglobin 33.1 pg (27.0-31.0); Mean Platelet Volume 6.3 fL (7.4-10.4); Platelet Count 287 thou/uL (130-400); RBC Distribution Width 12.6 % (11.5-14.5); Red Blood Cell (RBC) Count 3.91 mill/uL (4.20-5.40); White Blood Cell (WBC) Count 7.2 thou/uL (4.8-10.8)
[2021-10-14 05:47] LABS: Anion Gap 15 mmol/L (10-20); BUN (Urea Nitrogen) 9 mg/dL (9.8-20.1); Calc. Creatinine Clearance 40 mL/min (70-130); Calcium 9.1 mg/dL (7.8-10.44); Carbon Dioxide 23 mmol/L (23-31); Chloride 105 mmol/L (98-107); Glucose 104 mg/dL (83-110)
[2021-10-14 06:40] LABS: Potassium 3.8 mmol/L (3.5-5.1); Sodium 138 mmol/L (136-145)
[2021-10-14] MEDS: Enoxaparin Sodium 40 MG/0.4 ML SYRINGE SC SCH (09:12)
[2021-10-14] MEDS: Pantoprazole 40 MG VIAL IVP SCH (09:12)
[2021-10-14] MEDS: Sodium Chloride 0.9% 1,000 ML IV SCH ×2 (09:36→18:00)
[2021-10-14] MEDS: hydrALAZINE 20 MG/ML VIAL SLOW IVP PRN (20:15)
[2021-10-14 21:24] LABS: SARS-CoV-2 PCR by NAA Not Detected (NotDetected)
[2021-10-14] MEDS: Acetaminophen 650 MG Suppository PR PRN (21:45)
[2021-10-15] MEDS: Sodium Chloride 0.9% 1,000 ML IV SCH ×2 (02:03→15:33)
[2021-10-15] MEDS: Acetaminophen 650 MG Suppository PR PRN ×2 (05:01→10:45)
[2021-10-15] MEDS: Morphine 4 MG/ML VIAL SLOW IVP PRN ×2 (06:51→10:39)
[2021-10-15] MEDS: Enoxaparin Sodium 40 MG/0.4 ML SYRINGE SC SCH (09:18)
[2021-10-15] MEDS: Pantoprazole 40 MG VIAL IVP SCH (09:19)
[2021-10-15] MEDS ORDERED: MD-Gastroview 120 ML BOT ONE (10:31)
[2021-10-15] MEDS: Acetaminophen 325 MG TAB PO PRN ×2 (15:37→21:53)
[2021-10-15] MEDS ORDERED: Ondansetron PF 4 MG/2 ML Vial IVP PRN (16:08)
[2021-10-16] MEDS: Sodium Chloride 0.9% 1,000 ML IV SCH ×3 (04:10→21:50)
[2021-10-16] MEDS: Acetaminophen 325 MG TAB PO PRN (05:54)
[2021-10-16] MEDS: Enoxaparin Sodium 40 MG/0.4 ML SYRINGE SC SCH (08:30)
[2021-10-16] MEDS: Pantoprazole 40 MG VIAL IVP SCH (08:30)
[2021-10-16 08:35] LABS: #Lymphocytes 1.2 thou/uL (1.20-3.40); #Monocytes 0.4 thou/uL (0.11-0.59); #Neutrophils 4.8 thou/uL (1.40-6.50); %Basophils 0.6 % (0.0-1.0); %Eosinophils 0.7 % (0.0-10.0); %Lymphocytes 17.8 % (21.0-51.0); %Monocytes 6.3 % (0.0-10.0); %Neutrophils 74.7 % (42.0-75.0); Hemoglobin 11.4 g/dL (12.0-16.0); Mean Corpuscular HGB CONC 31.9 g/dL (32.0-36.0); Mean Platelet Volume 6.3 fL (7.4-10.4); Platelet Count 242 thou/uL (130-400); RBC Distribution Width 12.2 % (11.5-14.5); Red Blood Cell (RBC) Count 3.45 mill/uL (4.20-5.40); White Blood Cell (WBC) Count 6.5 thou/uL (4.8-10.8)
[2021-10-16 08:45] LABS: Anion Gap 18 mmol/L (10-20); BUN (Urea Nitrogen) 4 mg/dL (9.8-20.1); Calc. Creatinine Clearance 50 mL/min (70-130); Calcium 8.2 mg/dL (7.8-10.44); Carbon Dioxide 18 mmol/L (23-31); Chloride 106 mmol/L (98-107); Sodium 139 mmol/L (136-145)
[2021-10-16 08:48] LABS: Glucose 58 mg/dL (83-110)
[2021-10-16] MEDS: Hydrocodone-Acetamin 15 ML UDCUP PER TUBE PRN ×3 (09:33→23:14)
[2021-10-16] MEDS ORDERED: Dextrose 50% Abboject 50 ML SYRINGE SLOW IVP PRN (10:12)
[2021-10-16] MEDS ORDERED: Potassium Chloride 40 MEQ in Premix Bag 1 BAG IVPB SCH (12:00)
[2021-10-16] MEDS: Potassium Chloride 10 MEQ in Premix Bag 1 BAG IVPB SCH ×3 (13:42→14:45)
[2021-10-17] MEDS: Hydrocodone-Acetamin 15 ML UDCUP PER TUBE PRN ×2 (04:45→20:16)
[2021-10-17] MEDS: Enoxaparin Sodium 40 MG/0.4 ML SYRINGE SC SCH (09:01)
[2021-10-17] MEDS: Pantoprazole 40 MG VIAL IVP SCH (09:01)
[2021-10-17] MEDS: Acetaminophen 325 MG TAB PO PRN ×2 (09:01→13:49)
[2021-10-17] MEDS: Sodium Chloride 0.9% 1,000 ML IV SCH ×2 (09:03→23:54)
[2021-10-17 09:30] LABS: Anion Gap 11 mmol/L (10-20); BUN (Urea Nitrogen) Less than 4 mg/dL (9.8-20.1); Calc. Creatinine Clearance 51 mL/min (70-130); Calcium 8.6 mg/dL (7.8-10.44); Carbon Dioxide 29 mmol/L (23-31); Chloride 105 mmol/L (98-107); Glucose 81 mg/dL (83-110); Potassium 3.3 mmol/L (3.5-5.1); Sodium 142 mmol/L (136-145)
[2021-10-18] MEDS: Hydrocodone-Acetamin 15 ML UDCUP PER TUBE PRN ×3 (05:39→20:04)
[2021-10-18] MEDS: Enoxaparin Sodium 40 MG/0.4 ML SYRINGE SC SCH (08:58)
[2021-10-18] MEDS: Pantoprazole 40 MG VIAL IVP SCH (08:58)
[2021-10-18] MEDS: Sodium Chloride 0.9% 1,000 ML IV SCH (13:50)
[2021-10-18] MEDS: hydrALAZINE 20 MG/ML VIAL SLOW IVP PRN (13:58)
[2021-10-18] MEDS ORDERED: Amlodipine 5 MG TAB PO SCH (19:30)
[2021-10-19] MEDS: Hydrocodone-Acetamin 15 ML UDCUP PER TUBE PRN ×3 (08:42→22:10)
[2021-10-19] MEDS: Enoxaparin Sodium 30 MG/0.3 ML SYRINGE SC SCH (08:42)
[2021-10-19] MEDS: Pantoprazole 40 MG VIAL IVP SCH (08:42)
[2021-10-19] MEDS ORDERED: Amlodipine 5 MG TAB PO SCH ×2 (09:00→14:15)
[2021-10-20] MEDS: Amlodipine 5 MG TAB PO SCH (08:33)
[2021-10-20] MEDS: Pantoprazole 40 MG VIAL IVP SCH (08:34)
[2021-10-20] MEDS: Enoxaparin Sodium 30 MG/0.3 ML SYRINGE SC SCH (08:34)
[2021-10-20] MEDS: Acetaminophen 325 MG TAB PO PRN ×2 (09:01→16:32)
[2021-10-20] MEDS: Hydrocodone-Acetamin 15 ML UDCUP PER TUBE PRN (21:16)
[2021-10-21] MEDS: Enoxaparin Sodium 30 MG/0.3 ML SYRINGE SC SCH (09:12)
[2021-10-21] MEDS: Amlodipine 5 MG TAB PO SCH (09:12)
[2021-10-21] MEDS: Hydrocodone-Acetamin 15 ML UDCUP PER TUBE PRN (09:19)
[2021-10-21 14:22] LABS: SARS-CoV-2 PCR by NAA Not Detected (NotDetected)
[2021-10-21 16:29] VITALS: BP 156/64; TEMP 99.2
== END 2021-10-21 19:10 | DRG 389 ==
LOC: ERS 14:18 → SURG A 19:20
PROVIDERS: ADMIT Student in an Organized Health Care Education/Training Program; ATTEND Family Medicine
PROC: 0D9670Z Drainage of Stomach with Drainage Device, Via Natural or Artificial Opening (ICD-10-PCS; principal; 2021-10-13)
DX: K91.30 Postprocedural intestinal obstruction, unspecified as to partial versus complete (principal); E87.0 Hyperosmolality and hypernatremia; I69.354 Hemiplegia and hemiparesis following cerebral infarction affecting left non-dominant side; Z20.822 Contact with and (suspected) exposure to COVID-19; K52.9 Noninfective gastroenteritis and colitis, unspecified; I10 Essential (primary) hypertension; E87.6 Hypokalemia; F03.90 Unspecified dementia, unspecified severity, without behavioral disturbance, psychotic disturbance, mood disturbance, and anxiety; R29.6 Repeated falls; F41.9 Anxiety disorder, unspecified; F32.A Depression, unspecified; H91.91 Unspecified hearing loss, right ear; G43.909 Migraine, unspecified, not intractable, without status migrainosus; R15.9 Full incontinence of feces; Z91.81 History of falling; Z90.710 Acquired absence of both cervix and uterus; Z90.49 Acquired absence of other specified parts of digestive tract; Z85.43 Personal history of malignant neoplasm of ovary; Z88.5 Allergy status to narcotic agent; Z88.0 Allergy status to penicillin; Z91.041 Radiographic dye allergy status; Z79.899 Other long term (current) drug therapy; Z79.82 Long term (current) use of aspirin
CPT/HCPCS: 36415; 36416; 43762; 72220; 74018; 74019; 74177; 74250; 80048; 80053; 81003; 83690; 84484; 85025; 93005; 96372; 96374; 96375; C9113; J0360; J0500; J1200; J1650; J2270; J2405; J2930; J3480; J7042; J7050; Q9963; Q9967; S0028; U0003; U0005

== ENCOUNTER 2022-01-10 18:17 | Inpatient (IN) | payer MEDICARE, OTHER ==
[2022-01-10 19:23] LABS: ALT (SGPT) 15 U/L (8-55); AST (SGOT) 28 U/L (5-34); Albumin 4.3 g/dL (3.4-4.8); Alkaline Phosphatase 85 U/L (40-110); Anion Gap 19 mmol/L (10-20); BUN (Urea Nitrogen) 18 mg/dL (9.8-20.1); Bilirubin, Total 0.4 mg/dL (0.2-1.2); Calc. Creatinine Clearance 0 mL/min (70-130); Calcium 9.9 mg/dL (7.8-10.44); Carbon Dioxide 22 mmol/L (23-31); Chloride 101 mmol/L (98-107); Estimated GFR 79; Globulin 3.9 g/dL (2.4-3.5); Glucose 116 mg/dL (83-110); Potassium 3.8 mmol/L (3.5-5.1); Protein, Total 8.2 g/dL (5.8-8.1); Sodium 138 mmol/L (136-145)
[2022-01-10] MEDS ORDERED: Ketorolac Tromethamine 30 MG/ML VIAL ONE (19:41)
[2022-01-10] MEDS ORDERED: Acetaminophen 500 MG TAB ONE (19:41)
[2022-01-10 19:54] LABS: SARS-CoV-2 NAA Rapid Test DETECTED (NotDetected)
[2022-01-10] MEDS ORDERED: Cefepime 2 GM VIAL ONE (20:00)
[2022-01-10 20:15] LABS: #Lymphocytes 0.4 thou/uL (1.20-3.40); #Monocytes 0.9 thou/uL (0.11-0.59); #Neutrophils 10.5 thou/uL (1.40-6.50); %Basophils 0.3 % (0.0-1.0); %Eosinophils 0.2 % (0.0-10.0); %Lymphocytes 3.6 % (21.0-51.0); %Monocytes 7.2 % (0.0-10.0); %Neutrophils 88.7 % (42.0-75.0); Hemoglobin 12.7 g/dL (12.0-16.0); Mean Corpuscular HGB CONC 33.1 g/dL (32.0-36.0); Mean Corpuscular Hemoglobin 32.7 pg (27.0-31.0); Mean Corpuscular Volume 98.8 fL (78.0-98.0); Mean Platelet Volume 6.5 fL (7.4-10.4); Platelet Count 228 thou/uL (130-400); RBC Distribution Width 12.3 % (11.5-14.5); Red Blood Cell (RBC) Count 3.89 mill/uL (4.20-5.40); White Blood Cell (WBC) Count 11.8 thou/uL (4.8-10.8)
[2022-01-10 20:25] LABS: PTT 30.4 sec (22.9-36.1)
[2022-01-10 20:28] LABS: Bacteria/HPF None Seen HPF (None Seen); Bilirubin Negative (Negative); Blood, Urine 1+ (Negative); Calcium Oxalate Crystals 2+ HPF (None Seen); Clarity Clear (Clear); Glucose, Urine (Dipstick) Normal (Negative); Ketone, Urine Trace mg/dL (Negative); Leukocyte Negative Leu/uL (Negative); Nitrite Negative (Negative); Protein, Urine (Dipstick) 20 mg/dL (Neg-Trace); Specific Gravity, Urine 1.021 (1.002-1.036); Squamous Epithelial 0-3 HPF (0-3); Urobilinogen Normal mg/dL (Less than 2); WBC/HPF 0-3 HPF (0-3); pH, Urine 6.5 (5.0-9.0)
[2022-01-10] MEDS ORDERED: Vancomycin 1 GM/200 ML BAG ONE (20:35)
[2022-01-10] MEDS ORDERED: Famotidine/PF 20 mg/2ml Vial ONE (20:35)
[2022-01-10] MEDS ORDERED: methylPREDNISolone Sod Succ 40 MG VIAL ONE (20:35)
[2022-01-10] MEDS ORDERED: diphenhydrAMINE 50 MG/ML VIAL ONE (20:35)
[2022-01-10] MEDS ORDERED: Acetaminophen 650 MG Suppository PR PRN (22:27)
[2022-01-10] MEDS ORDERED: Albuterol 200 PUFF (6.7GM INHALER) INH PRN (22:27)
[2022-01-10] MEDS ORDERED: REMDESIVIR 200 MG in Sodium Chloride 0.9% 250 ML 210 ML IV SCH (22:30)
[2022-01-10] MEDS ORDERED: Ondansetron PF 4 MG/2 ML Vial IVP PRN (22:38)
[2022-01-10] MEDS ORDERED: Bisacodyl 5 MG TAB PO PRN (22:38)
[2022-01-11 04:05] VITALS: BMI 17.9
[2022-01-11] MEDS: Benzonatate 100 MG CAP PO PRN ×2 (06:23→23:02)
[2022-01-11] MEDS: Acetaminophen 325 MG TAB PO PRN ×3 (06:23→20:45)
[2022-01-11 06:36] LABS: #Lymphocytes 0.7 thou/uL (1.20-3.40); #Monocytes 0.3 thou/uL (0.11-0.59); #Neutrophils 8.9 thou/uL (1.40-6.50); %Basophils 0.1 % (0.0-1.0); %Eosinophils 0.1 % (0.0-10.0); %Neutrophils 89.8 % (42.0-75.0); Hemoglobin 12.6 g/dL (12.0-16.0); Mean Corpuscular HGB CONC 32.5 g/dL (32.0-36.0); Mean Corpuscular Hemoglobin 32.2 pg (27.0-31.0); Mean Corpuscular Volume 99.2 fL (78.0-98.0); Mean Platelet Volume 6.3 fL (7.4-10.4); Platelet Count 238 thou/uL (130-400); RBC Distribution Width 12.2 % (11.5-14.5); Red Blood Cell (RBC) Count 3.91 mill/uL (4.20-5.40); White Blood Cell (WBC) Count 9.9 thou/uL (4.8-10.8)
[2022-01-11 06:58] LABS: Anion Gap 16 mmol/L (10-20); BUN (Urea Nitrogen) 15 mg/dL (9.8-20.1); Calc. Creatinine Clearance 51 mL/min (70-130); Carbon Dioxide 22 mmol/L (23-31); Chloride 109 mmol/L (98-107); Estimated GFR 89; Glucose 130 mg/dL (83-110); Potassium 3.7 mmol/L (3.5-5.1); Sodium 143 mmol/L (136-145)
[2022-01-11] MEDS ORDERED: Cefepime 1 GM in Sodium Chloride 0.9% 100 ML IVPB SCH (09:00)
[2022-01-11] MEDS: Amlodipine 5 MG TAB PO SCH (09:33)
[2022-01-11] MEDS: Dexamethasone 4 mg/ml Vial SLOW IVP SCH (09:33)
[2022-01-11] MEDS: Aspirin 81 mg Enteric Coated Tablet PO SCH (09:34)
[2022-01-11] MEDS: Enoxaparin Sodium 40 MG/0.4 ML SYRINGE SC SCH (09:34)
[2022-01-11] MEDS: Cefepime 2 GM in Sodium Chloride 0.9% 100 ML IVPB SCH (20:36)
[2022-01-11] MEDS: Senokot S 8.6-50 MG TAB PO SCH (20:37)
[2022-01-11] MEDS: Melatonin 3 MG TAB PO SCH (20:37)
[2022-01-11] MEDS ORDERED: REMDESIVIR 100 MG in Sodium Chloride 0.9% 250 ML 230 ML IV SCH (22:30)
[2022-01-12 06:54] LABS: #Lymphocytes 1.7 thou/uL (1.20-3.40); #Monocytes 0.7 thou/uL (0.11-0.59); #Neutrophils 7.6 thou/uL (1.40-6.50); %Basophils 0.4 % (0.0-1.0); %Eosinophils 0.1 % (0.0-10.0); %Lymphocytes 16.7 % (21.0-51.0); %Monocytes 6.7 % (0.0-10.0); %Neutrophils 76.2 % (42.0-75.0); Hemoglobin 12.1 g/dL (12.0-16.0); Mean Corpuscular HGB CONC 32.3 g/dL (32.0-36.0); Mean Corpuscular Hemoglobin 31.9 pg (27.0-31.0); Mean Corpuscular Volume 98.8 fL (78.0-98.0); Mean Platelet Volume 6.7 fL (7.4-10.4); Platelet Count 229 thou/uL (130-400); RBC Distribution Width 12.1 % (11.5-14.5); Red Blood Cell (RBC) Count 3.78 mill/uL (4.20-5.40)
[2022-01-12 07:12] LABS: Anion Gap 12 mmol/L (10-20); BUN (Urea Nitrogen) 13 mg/dL (9.8-20.1); CRP (Inflammatory) 3.85 mg/dL (= or < 0.5); Calc. Creatinine Clearance 52 mL/min (70-130); Calcium 9.7 mg/dL (7.8-10.44); Carbon Dioxide 28 mmol/L (23-31); Chloride 108 mmol/L (98-107); Estimated GFR 90; Glucose 101 mg/dL (83-110); Potassium 3.4 mmol/L (3.5-5.1); Sodium 145 mmol/L (136-145)
[2022-01-12] MEDS: Escitalopram Oxalate 10 mg Tablet PO SCH (09:42)
[2022-01-12] MEDS: Aspirin 81 mg Enteric Coated Tablet PO SCH (09:42)
[2022-01-12] MEDS: Ferrous Sulfate 325 MG TAB PO SCH (09:42)
[2022-01-12] MEDS: Enoxaparin Sodium 40 MG/0.4 ML SYRINGE SC SCH (09:43)
[2022-01-12] MEDS: Amlodipine 5 MG TAB PO SCH (09:43)
[2022-01-12] MEDS: Dexamethasone 4 mg/ml Vial SLOW IVP SCH (09:43)
[2022-01-12] MEDS: Cefepime 2 GM in Sodium Chloride 0.9% 100 ML IVPB SCH (09:45)
[2022-01-12] MEDS: Benzonatate 100 MG CAP PO PRN (18:58)
[2022-01-12] MEDS: Melatonin 3 MG TAB PO SCH (20:41)
[2022-01-12] MEDS: Senokot S 8.6-50 MG TAB PO SCH (20:41)
[2022-01-13] MEDS: Benzonatate 100 MG CAP PO PRN ×3 (08:40→21:40)
[2022-01-13] MEDS: Enoxaparin Sodium 40 MG/0.4 ML SYRINGE SC SCH (10:18)
[2022-01-13] MEDS: Escitalopram Oxalate 10 mg Tablet PO SCH (10:19)
[2022-01-13] MEDS: Amlodipine 5 MG TAB PO SCH (10:19)
[2022-01-13] MEDS: Aspirin 81 mg Enteric Coated Tablet PO SCH (10:20)
[2022-01-13] MEDS: Ferrous Sulfate 325 MG TAB PO SCH (10:20)
[2022-01-13] MEDS: Acetaminophen 325 MG TAB PO PRN ×2 (15:17→21:41)
[2022-01-13] MEDS: Melatonin 3 MG TAB PO SCH (21:40)
[2022-01-13] MEDS: Senokot S 8.6-50 MG TAB PO SCH (21:42)
[2022-01-14] MEDS ORDERED: HYDROcodone/Acetaminophen 5/325 mg Tablet PO SCH (03:45)
[2022-01-14 06:50] LABS: #Eosinphils 0.2 thou/uL (0.0-0.7); #Lymphocytes 1.4 thou/uL (1.20-3.40); #Monocytes 0.7 thou/uL (0.11-0.59); #Neutrophils 3.9 thou/uL (1.40-6.50); %Basophils 0.7 % (0.0-1.0); %Eosinophils 2.6 % (0.0-10.0); %Lymphocytes 22.1 % (21.0-51.0); %Monocytes 11.2 % (0.0-10.0); %Neutrophils 63.5 % (42.0-75.0); Hemoglobin 13.7 g/dL (12.0-16.0); Mean Corpuscular HGB CONC 32.1 g/dL (32.0-36.0); Mean Corpuscular Hemoglobin 31.8 pg (27.0-31.0); Mean Corpuscular Volume 98.9 fL (78.0-98.0); Mean Platelet Volume 6.3 fL (7.4-10.4); Platelet Count 256 thou/uL (130-400); RBC Distribution Width 12.1 % (11.5-14.5); White Blood Cell (WBC) Count 6.2 thou/uL (4.8-10.8)
[2022-01-14 07:12] LABS: Anion Gap 15 mmol/L (10-20); BUN (Urea Nitrogen) 21 mg/dL (9.8-20.1); CRP (Inflammatory) 1.02 mg/dL (= or < 0.5); Calc. Creatinine Clearance 54 mL/min (70-130); Calcium 9.2 mg/dL (7.8-10.44); Carbon Dioxide 22 mmol/L (23-31); Chloride 105 mmol/L (98-107); Estimated GFR 91; Glucose 84 mg/dL (83-110); Potassium 3.4 mmol/L (3.5-5.1); Sodium 139 mmol/L (136-145)
[2022-01-14] MEDS ORDERED: Ketorolac Tromethamine 10 MG TAB PO PRN (10:12)
[2022-01-14] MEDS: Escitalopram Oxalate 10 mg Tablet PO SCH (10:26)
[2022-01-14] MEDS: Aspirin 81 mg Enteric Coated Tablet PO SCH (10:27)
[2022-01-14] MEDS: Amlodipine 5 MG TAB PO SCH (10:27)
[2022-01-14] MEDS: Enoxaparin Sodium 40 MG/0.4 ML SYRINGE SC SCH (10:27)
[2022-01-14] MEDS: Ferrous Sulfate 325 MG TAB PO SCH (10:27)
[2022-01-14] MEDS: HYDROcodone/Acetaminophen 5/325 mg Tablet PO PRN ×2 (11:15→20:30)
[2022-01-14] MEDS: Melatonin 3 MG TAB PO SCH (20:29)
[2022-01-14] MEDS: Senokot S 8.6-50 MG TAB PO SCH (20:30)
[2022-01-14 21:40] VITALS: TEMP 98.1
[2022-01-15] MEDS: HYDROcodone/Acetaminophen 5/325 mg Tablet PO PRN (05:30)
[2022-01-15] MEDS: Acetaminophen 325 MG TAB PO PRN ×2 (05:30→10:09)
[2022-01-15 08:25] VITALS: BP 155/73
[2022-01-15] MEDS: Enoxaparin Sodium 40 MG/0.4 ML SYRINGE SC SCH (09:56)
[2022-01-15] MEDS: Aspirin 81 mg Enteric Coated Tablet PO SCH (09:56)
[2022-01-15] MEDS: Escitalopram Oxalate 10 mg Tablet PO SCH (09:56)
[2022-01-15] MEDS: Ferrous Sulfate 325 MG TAB PO SCH (09:57)
[2022-01-15] MEDS: Amlodipine 5 MG TAB PO SCH (09:57)
== END 2022-01-15 15:34 | DRG 177 ==
LOC: ERS 18:17 → T4-B 21:07
PROVIDERS: ADMIT Hospitalist; ATTEND Hospitalist
PROC: 8E0ZXY6 Isolation (ICD-10-PCS; principal; 2022-01-10)
PROC: XW043E5 Introduction of Remdesivir Anti-infective into Central Vein, Percutaneous Approach, New Technology Group 5 (ICD-10-PCS; 2022-01-10)
DX: U07.1 COVID-19 (principal); J12.82 Pneumonia due to coronavirus disease 2019; I10 Essential (primary) hypertension; M17.11 Unilateral primary osteoarthritis, right knee; G43.909 Migraine, unspecified, not intractable, without status migrainosus; F41.9 Anxiety disorder, unspecified; F32.A Depression, unspecified; R29.6 Repeated falls; Z91.041 Radiographic dye allergy status; Z88.0 Allergy status to penicillin; Z88.5 Allergy status to narcotic agent; Z79.82 Long term (current) use of aspirin; Z82.49 Family history of ischemic heart disease and other diseases of the circulatory system
CPT/HCPCS: 36415; 36416; 51701; 71045; 71275; 80048; 80053; 81003; 81015; 83605; 84484; 85025; 85610; 85730; 86140; 87040; 87086; 87324; 87449; 93005; 96361; 96365; 96366; 96367; 96375; J0692; J1100; J1200; J1650; J1885; J2920; J3370; J3490; Q9967; S0028

== ENCOUNTER 2022-03-15 18:04 | Emergency (ER) | payer MEDICARE, OTHER ==
[2022-03-15] MEDS ORDERED: Lidocaine 1% PF 5 ML VIAL ONE (18:37)
[2022-03-15] MEDS ORDERED: Boostrix 0.5 ML (Tdap) VIAL (>/=7 yrs of age) ONE (18:51)
== END 2022-03-15 20:23 ==
LOC: ERS 18:04
DX: S61.211A Laceration without foreign body of left index finger without damage to nail, initial encounter (principal); I10 Essential (primary) hypertension; Z86.73 Personal history of transient ischemic attack (TIA), and cerebral infarction without residual deficits; F01.50 Vascular dementia, unspecified severity, without behavioral disturbance, psychotic disturbance, mood disturbance, and anxiety; Z79.82 Long term (current) use of aspirin; Z79.899 Other long term (current) drug therapy; W26.0XXA Contact with knife, initial encounter
CPT/HCPCS: 12001; 90471; 90715

== ENCOUNTER 2023-11-22 18:17 | Inpatient (IN) | payer OTHER, MEDICAID ==
[~2023-11-22 18:17] MED LIST changes: -Iopamidol-370 76% 500 ML 1 ML ONE; +Iopamidol-370 76% 500 ML MDV (1 ML CHARGE) ONE
[2023-11-22 19:22] LABS: Bilirubin Negative (Negative); Blood, Urine Moderate (Negative); Glucose, Urine (Dipstick) Negative (Negative); Ketone, Urine Trace mg/dL (Negative); Leukocyte Negative (Negative); Nitrite Negative (Negative); Protein, Urine (Dipstick) Negative (Neg-Trace); Specific Gravity, Urine 1.025 (1.005-1.030); Urobilinogen 0.2 mg/dL (Less than 2)
[2023-11-22 19:23] LABS: Clarity Clear (Clear)
[2023-11-22 19:25] LABS: Bacteria/HPF None Seen HPF (None Seen); CAUTI Indications for Culture Alt mental st,lethar; Squamous Epithelial None Seen HPF (0-3); WBC/HPF None Seen HPF (0-3)
[2023-11-22 19:27] LABS: Urine Culture Reflex No No
[2023-11-22 19:39] LABS: #Basophils 0.05 10x3/uL (0.0-0.2); %Basophils 0.6 % (0.0-1.0); %Eosinophils 2.3 % (0.0-10.0); %Monocytes 9.4 % (0.0-10.0); %Neutrophils 52.6 % (42.0-75.0); Hematocrit 36.2 % (36.0-47.0); Hemoglobin 12.4 g/dL (12.0-16.0); Mean Corpuscular HGB CONC 34.3 g/dL (32.0-36.0); Mean Corpuscular Volume 96.3 fL (78.0-98.0); Mean Platelet Volume 8.6 fL (7.4-10.4); Platelet Count 245 10x3/uL (130-400); Red Blood Cell (RBC) Count 3.76 mill/uL (4.20-5.40)
[2023-11-22 19:58] LABS: ALT (SGPT) 15 U/L (8-55); AST (SGOT) 22 U/L (5-34); Albumin 3.7 g/dL (3.4-4.8); Alkaline Phosphatase 61 U/L (40-110); Anion Gap 17 mmol/L (10-20); BUN (Urea Nitrogen) 12 mg/dL (9.8-20.1); Bilirubin, Total 0.2 mg/dL (0.2-1.2); Calc. Creatinine Clearance 0 mL/min (70-130); Calcium 8.9 mg/dL (7.8-10.44); Carbon Dioxide 20 mmol/L (23-31); Chloride 110 mmol/L (98-107); Estimated GFR 78; Globulin 3.3 g/dL (2.4-3.5); Glucose 107 mg/dL (83-110); Potassium 3.9 mmol/L (3.5-5.1); Sodium 143 mmol/L (136-145)
[2023-11-22] MEDS ORDERED: methylPREDNISolone Sod Succ 40 MG VIAL ONE (20:21)
[2023-11-22] MEDS ORDERED: Famotidine/PF 20 mg/2ml Vial ONE (20:22)
[2023-11-22] MEDS ORDERED: diphenhydrAMINE 50 MG/ML VIAL ONE (20:22)
[2023-11-22] MEDS ORDERED: Aspirin Chewable 81 MG TAB ONE (22:58)
[2023-11-23] MEDS ORDERED: Ondansetron ODT 4 MG TAB SL PRN (00:30)
[2023-11-23] MEDS ORDERED: Ondansetron PF 4 MG/2 ML Vial IVP PRN (00:30)
[2023-11-23 01:32] VITALS: BMI 39.2
[2023-11-23] MEDS ORDERED: hydrALAZINE 20 MG/ML VIAL SLOW IVP PRN (02:25)
[2023-11-23] MEDS: Melatonin 3 MG TAB PO SCH ×2 (02:34→19:53)
[2023-11-23] MEDS: hydrOXYzine 25 MG TAB PO SCH ×3 (02:34→21:17)
[2023-11-23 08:20] LABS: #Basophils 0.04 10x3/uL (0.0-0.2); #Eosinphils Less than 0.03 10x3/uL (0.0-0.7); %Basophils 0.5 % (0.0-1.0); %Lymphocytes 16.6 % (21.0-51.0); %Neutrophils 77.6 % (42.0-75.0); Hematocrit 35.3 % (36.0-47.0); Hemoglobin 12.1 g/dL (12.0-16.0); Mean Corpuscular HGB CONC 34.3 g/dL (32.0-36.0); Mean Corpuscular Hemoglobin 32.9 pg (27.0-31.0); Mean Corpuscular Volume 95.9 fL (78.0-98.0); Mean Platelet Volume 8.6 fL (7.4-10.4); Platelet Count 258 10x3/uL (130-400); RBC Distribution Width 12.8 % (11.5-14.5); Red Blood Cell (RBC) Count 3.68 mill/uL (4.20-5.40)
[2023-11-23 08:57] LABS: Anion Gap 16 mmol/L (10-20); BUN (Urea Nitrogen) 15 mg/dL (9.8-20.1); Calc. Creatinine Clearance 63 mL/min (70-130); Calcium 9.1 mg/dL (7.8-10.44); Carbon Dioxide 26 mmol/L (23-31); Cardiac Risk 2.6 (Less than 4.5); Chloride 104 mmol/L (98-107); Cholesterol 150 mg/dl (< 200 Desired); Estimated GFR 88; Glucose 109 mg/dL (83-110); HDL Cholesterol 57 mg/dL (>60 Neg Risk); LDL Cholesterol, Calculated 69 mg/dL; Potassium 3.5 mmol/L (3.5-5.1); Sodium 142 mmol/L (136-145); Triglycerides 119 mg/dL (Less than 150)
[2023-11-23] MEDS ORDERED: CYANOCOBALAMIN 5000 MCG PO SCH (09:00)
[2023-11-23] MEDS: Acetaminophen 325 MG TAB PO PRN ×2 (09:00→22:28)
[2023-11-23] MEDS: Cyanocobalamin (Vitamin B-12) 1,000 MCG TAB PO SCH (09:00)
[2023-11-23] MEDS ORDERED: Non-Formulary Item 1 EACH (Escitalopram Oxalate [Escitalopram Oxalate] 5 MG Tablet) PO SCH (09:00)
[2023-11-23] MEDS: Amlodipine 5 MG TAB PO SCH (09:00)
[2023-11-23] MEDS ORDERED: [UNRECOGNIZED DRUG - OTHER] PO SCH (09:00)
[2023-11-23] MEDS: Escitalopram Oxalate 20 mg Tablet PO SCH (09:00)
[2023-11-23] MEDS: Memantine 10 MG TAB PO SCH (09:00)
[2023-11-23] MEDS: Aspirin 81 mg Enteric Coated Tablet PO SCH (09:01)
[2023-11-23] MEDS: Cyclobenzaprine 10 MG TAB PO PRN (18:05)
[2023-11-23] MEDS: Lidocaine 4% Patch TD SCH (18:07)
[2023-11-23] MEDS: Senokot S 8.6-50 MG TAB PO SCH (19:54)
[2023-11-23] MEDS: Atorvastatin Calcium 40 MG TAB PO SCH (19:54)
[2023-11-23] MEDS: Acetaminophen 500 MG TAB PO SCH (21:17)
[2023-11-23] MEDS: Cyclobenzaprine 10 MG TAB PO SCH (22:28)
[2023-11-23] MEDS: Methyl Salicylate/Menthol 85 GM TUBE TOP PRN (23:13)
[2023-11-24] MEDS: LIDOCAINE Patch Removal TOP SCH (05:16)
[2023-11-24 08:21] VITALS: BP 146/82; TEMP 98.1
[2023-11-24] MEDS: Clopidogrel Bisulfate 75 MG TAB PO SCH (08:47)
[2023-11-24] MEDS: Ketorolac Tromethamine 30 MG (1 mL) VIAL IVP PRN (08:48)
[2023-11-24] MEDS ORDERED: hydrOXYzine 25 MG TAB PO SCH (21:00)
== END 2023-11-24 09:33 | DRG 69 ==
LOC: ERS 18:17 → 2SE 23:02
PROVIDERS: ADMIT Student in an Organized Health Care Education/Training Program; ATTEND Internal Medicine
PROC: 4A10X4Z Monitoring of Central Nervous Electrical Activity, External Approach (ICD-10-PCS; principal; 2023-11-23)
DX: G45.9 Transient cerebral ischemic attack, unspecified (principal); G51.0 Bell's palsy; I10 Essential (primary) hypertension; R91.8 Other nonspecific abnormal finding of lung field; I67.2 Cerebral atherosclerosis; F01.50 Vascular dementia, unspecified severity, without behavioral disturbance, psychotic disturbance, mood disturbance, and anxiety; Z85.43 Personal history of malignant neoplasm of ovary; Z79.899 Other long term (current) drug therapy; Z79.82 Long term (current) use of aspirin; Z88.0 Allergy status to penicillin; Z88.5 Allergy status to narcotic agent; Z91.041 Radiographic dye allergy status; Z91.010 Allergy to peanuts; Z86.73 Personal history of transient ischemic attack (TIA), and cerebral infarction without residual deficits; Z90.710 Acquired absence of both cervix and uterus; Z90.49 Acquired absence of other specified parts of digestive tract
CPT/HCPCS: 36415; 36416; 70450; 70496; 70498; 70551; 74177; 80048; 80053; 80061; 81001; 85025; 86141; 87086; 93306; 95700; 95712; 95819; 96374; 96375; J1200; J1885; J2920; Q9967; S0028